=== PATIENT | male | born 1995 | race Caucasian/White ===

== ENCOUNTER → 2016-11-15 | Outpatient (CLI) | payer OTHER ==
--- NOTE | 2016-11-15 15:53 | DIAGNOSTIC IMAGING REPORT ---
RIGHT HAND 2 VIEWS CLINICAL HISTORY: Right hand pain localizing to the fifth metacarpal. FINDINGS: 2 views of the right hand are obtained. No prior studies are available for comparison at the time of dictation. The skeletal structures are well mineralized. No fracture is seen. The joint spaces of the hand are well-maintained. The overlying soft tissues are within normal limits. IMPRESSION: No acute bony abnormality is identified in the right hand. Electronically signed by: Goran Chinchilla M.D. 11/15/2016 3:51 PM Dictated Date/Time: 11/15/2016 3:51 PM
== END | disposition home or self-care (01) ==
LOC: C.RDSM 15:26
PROVIDERS: ATTEND Physician Assistant
DX: M79.641 Pain in right hand (principal)

== ENCOUNTER 2017-03-02 20:19 | Emergency (ER) | payer BC, OTHER ==
[~2017-03-02] VITALS: Ht 182.9 cm; Wt 68.0 kg
[2017-03-02 20:23] VITALS: TEMP 36.4; Ht 182.9 cm; Wt 68.0 kg
--- NOTE | 2017-03-02 21:29 | DIAGNOSTIC IMAGING REPORT ---
(TESTICULAR) SCROTUM-CONT CLINICAL HISTORY: 21 years-old Male presenting with left testicular pain. TECHNIQUE: Real-time grayscale and color and spectral Doppler ultrasound imaging of the scrotum was performed. COMPARISON: None. FINDINGS: Right testis: Normal echogenicity and size, measuring 4.9 x 2.4 x 3.1 cm. Normal color Doppler flow and arterial and venous waveforms in the testicular parenchyma. Epididymal head normal. No hydrocele. Left testis: Normal echogenicity and size, measuring 4.7 x 2.7 x 2.7 cm. Normal color Doppler flow and arterial and venous waveforms in the testicular parenchyma. Epididymal head normal. No hydrocele. Bilaterally symmetric perfusion of the testes. IMPRESSION: No evidence of testicular torsion. Electronically signed by: Cj Gold M.D. 03/02/2017 9:28 PM Dictated Date/Time: 03/02/2017 9:26 PM
[2017-03-02] MEDS ORDERED: IBUPROFEN 600 MG TAB PO STA (22:20)
[2017-03-02 22:26] VITALS: BP 134/92; PULSE 84; O2SAT 98
--- NOTE | 2017-03-02 23:12 | EMERGENCY ROOM VISIT NOTE ---
History Report prepared by Latriciaibirish: Anai Montero Under the Supervision of: Dr. Javier Wallace M.D. First contact with patient: 20:27 Chief Complaint: TESTICULAR PAIN Stated Complaint: TESTICULAR PAIN Nursing Triage Summary: patient states one hour ago he was sitting on the toilet and felt his left testicle " go up in me". patient states he pushed the testicle back out and called EMS . patient states he has pain with walking. History of Present Illness The patient is a 21 year old male who presents to the Emergency Room with complaints of persistent left testicle pain for the past 1 hour. He reports he was sitting on the toilet this evening when he felt his left testicle "go up in me". He has severe pain and it was a 10 out of 10. He was able to push it back out and called EMS. He rates his discomfort as a 4/10 in severity and is improving. Walking worsens his discomfort. He has experienced no fever, abdominal pain, back pain, trauma, dysuria, hematuria or abnormal penile discharge. He has been sexually active. He is with the same partner for some time and she is asymptomatic. Review of Systems See HPI for pertinent positives and negatives. A total of ten systems were reviewed and were otherwise negative. Past Medical & Surgical Medical Problems: (1) No significant past medical history Social History Smoking Status: Never Smoker Alcohol Use: occasionally Drug Use: none Marital Status: single Housing Status: lives with roommate Occupation Status: [employer] student Current/Historical Medications No Active Prescriptions or Reported Meds Allergies Coded Allergies: [place] (Verified Allergy, Intermediate, Hives, 03/02/17) Ethanol (Verified Allergy, Unknown, Unknown, 03/02/17) Guaifenesin (Verified Allergy, Unknown, Unknown, 03/02/17) Physical Exam Vital Signs Date Time Temp Pulse Resp B/P (MAP) Pulse Ox O2 Delivery O2 Flow Rate FiO2 03/02/17 22:26 84 20 134/92 98 03/02/17 21:25 84 20 141/77 98 03/02/17 20:23 36.4 90 20 127/76 98 Room Air Physical Exam GENERAL: Awake, alert, well-appearing, in no distress HENT: Normocephalic, atraumatic. Oropharynx unremarkable. EYES: Normal conjunctiva. Sclera non-icteric. NECK: Supple. No nuchal rigidity. FROM. No JVD. RESPIRATORY: Clear to auscultation. CARDIAC: Regular rate, normal rhythm. Extremities warm and well perfused. Pulses equal. ABDOMEN: Soft, non-distended. No tenderness to palpation. No rebound or guarding. No masses. : Normal male genitalia. No penile discharge. Right testicle is nontender. Left testicle is minimally tender. No epididymal tenderness. Left testicle has slight abnormal lie, freely mobile, very easily rotated. MUSCULOSKELETAL: Chest examination reveals no tenderness. The back is symmetrical on inspection without obvious abnormality. There is no CVA tenderness to palpation. No joint edema. LOWER EXTREMITIES: Calves are equal size bilaterally and non-tender. No edema. No discoloration. NEURO: Normal sensorium. No sensory or motor deficits noted. SKIN: No rash or jaundice noted. Medical Decision & Procedures ER Provider Diagnostic Interpretation: Radiology results as stated below per my review and radiologist interpretation: (TESTICULAR) SCROTUM-CONT CLINICAL HISTORY: 21 years-old Male presenting with left testicular pain. TECHNIQUE: Real-time grayscale and color and spectral Doppler ultrasound imaging of the scrotum was performed. COMPARISON: None. FINDINGS: Right testis: Normal echogenicity and size, measuring 4.9 x 2.4 x 3.1 cm. Normal color Doppler flow and arterial and venous waveforms in the testicular parenchyma. Epididymal head normal. No hydrocele. Left testis: Normal echogenicity and size, measuring 4.7 x 2.7 x 2.7 cm. Normal color Doppler flow and arterial and venous waveforms in the testicular parenchyma. Epididymal head normal. No hydrocele. Bilaterally symmetric perfusion of the testes. IMPRESSION: No evidence of testicular torsion. Electronically signed by: Cj Gold M.D. 03/02/2017 9:28 PM Medications Administered Medications (Trade) Dose Ordered Sig/Kiara Route Start Time Stop Time Status Last Admin Dose Admin Ibuprofen (Motrin Tab) 600 mg NOW STAT PO 03/02/17 22:20 03/02/17 22:21 DC 03/02/17 22:25 600 MG ED Course 2034: The patient was evaluated in room C5. A complete history and physical exam was performed. 2129: I reevaluated the patient. He is feeling about the same but declined any medication for pain or nausea. 2139: I discussed the patients case with Dr. Duvall, [facility]. He recommends the patient follow up in the office if he has any more problems. 2211: I reevaluated the patient. He feels much better. He is able to stand and ambulate without limitation or discomfort. Upon reexamination, he has normal cremasteric function on the left, Vas is palpable and normal, cord is nontender, normal lie. I discussed his results and discharge instructions and he verbalized complete understanding and agreement. 2220: Ibuprofen 600 mg PO. Medical Decision Triage Nursing notes reviewed and agree them. The patient's history was concerning for testicular swelling. Differential diagnosis: Etiologies such as torsion, mass, infection, hernia, hydrocele, epididymitis, trauma, intra-abdominal process, as well as others were entertained. Physical examination: As above. The patient had somewhat abnormal lie of the left testicle. The testicle was rotated 180. Easily. The testicle itself was not significantly tender. The epididymis was nontender. Spermatic cord was unremarkable. No hernia. ER treatment provided: Patient initially declined analgesia On reassessment the patient felt better. Repeat examination was improved. Cremasteric reflex was normal on the left side. Cremasteric functioning appeared normal. There was an easily palpable and nontender Vas deferens. Diagnostic interpretation by me: Imaging studies: Ultrasound as above Consultation: A consultation was placed with the urologist, Dr. Duvall. The case was discussed and diagnostics were reviewed. As the patient has improved and his examination better he recommended torsion precautions and close follow-up in his office. The patient was given his information will call Sunday morning. By the history and physical examination. The patient had an episode of torsion and then detorsed. By the evaluation outlined above emergent etiologies such as continued torsion, mass, infection, hernia, hydrocele, epididymitis, trauma, intra-abdominal process, as well as others were deemed relatively unlikely. The patient was informed about the findings as listed above. All questions were answered and he was pleased with the treatment. Return instructions were outlined and the patient was discharged in stable condition. Outpatient prescription management: none Referral: The patient was referred to Urology for follow-up next week for a recheck of the current condition. Medication Reconcilliation Current Medication List: was personally reviewed by me Blood Pressure Screening Patient's blood pressure: Elevated blood pressure Blood pressure disposition: Elevated BP felt to be situational Consults Time Called: 2134 Consulting Physician: Dr. Duvall, [facility] Returned Call: 2139 I discussed the patients case with Dr. Duvall, [facility]. He recommends the patient follow up in the office if he has any more problems. Impression Primary Impression: Testicular pain Scribe Attestation The scribe's documentation has been prepared under my direction and personally reviewed by me in its entirety. I confirm that the note above accurately reflects all work, treatment, procedures, and medical decision making performed by me. Departure Information Dispostion Home / Self-Care Prescriptions No Active Prescriptions or Reported Meds Referrals [facility] (PCP) Patient Instructions My [facility] Additional Instructions Ibuprofen(Motrin, Advil) may be used for fever or pain. Use 600mg every six hours as needed. Take with food. Avoid using more than 2400mg in a 24 hour period. Do not use 2400mg per day for more than three consecutive days without physician direction. Prolonged inappropriate use can lead to stomach upset or ulcers. (AND/OR) Acetaminophen(Tylenol) may be used for fever or pain. Use 1000mg every six hours as needed. Avoid using more than 4000mg in a 24 hour period. Rest and avoid strenuous activity. Wear supportive underwear. Drink plenty of fluids. Return to the ER for worsening testicular pain, abdominal or back pain, vomiting , fevers, passing out, or as needed. Follow up with [facility] by phone Sunday, [phone], to arrange a visit. Tell the pathology secretary/transcriptionist that you were in the Emergency Room Sunday night and Dr. Duvall was aware.
== END 2017-03-02 22:27 | disposition home or self-care (01) ==
LOC: EDBD 20:19 → C.EDC 20:20
DX: N50.812 Left testicular pain (principal)

== ENCOUNTER 2017-03-03 14:10 | Emergency (ER) | payer BC ==
[~2017-03-03] VITALS: Ht 182.9 cm; Wt 68.2 kg
[2017-03-03 14:13] VITALS: TEMP 36.4; Ht 182.9 cm; Wt 68.2 kg
[2017-03-03] MEDS ORDERED: IBUPROFEN 600 MG TAB PO STA (14:29)
--- NOTE | 2017-03-03 14:38 | EMERGENCY ROOM VISIT NOTE ---
History Report prepared by Yola: Heriberto Watts Under the Supervision of: Dr. Mitchell Hurtado M.D. First contact with patient: 14:18 Chief Complaint: TESTICULAR PAIN Stated Complaint: TESTICULAR PAIN LEFT Nursing Triage Summary: was seen yesterday for testicular torsion, that was worked out. was told to return for pain. states pain started an hour ago and he saw his testicle move upward again. came in to be evaluated History of Present Illness The patient is a 21 year old male who presents to the Emergency Room with complaints of left testicular pain that began a couple of days ago. He rates his current pain a 5/10 in severity. He presented to the ER last night with similar symptoms. However, at that time, they were significantly worse. Prior to last night's visit, he had been having some mild testicular aching for a couple of day. Last night, the patient was sitting on the toilet and noticed that his left testicle "slipped" up into his groin. When he pushed it back out, he began to experience a terrible pain that he rated a 9/10 in severity. He received an US in the hospital and was diagnosed with testicular torsion. He was told to return if his symptoms return. Today, his testicles continued to ache, and after the patient was finished playing video games, he stood up and felt his left testicle beginning to retract into his abdomen again. He came back into the ER so he would not experience torsion again. He currently has left testicle pain, mild groin pain, and intermittent nausea. He denies any fevers, chills, back pain, burning with urination, penile discharge, or penile lesions. He denies any current medications or medical problems. He notes that he normally wears briefs for his underwear. Source of History: patient Onset: a couple of days ago Position: other (Left testicle) Symptom Intensity: 5/10 Quality: ache Timing: constant Associated Symptoms: + nausea, No fevers, No chills, No back pain, No urinary symptoms Note: He is experiencing some groin pain as well. Review of Systems See HPI for pertinent positives & negatives. A total of 10 systems reviewed and were otherwise negative. Past Medical & Surgical Medical Problems: (1) No significant past medical history Old medical records were reviewed. Nurse's notes were reviewed and I agree with. Family History Patient reports no known family medical history. Social History Smoking Status: Never Smoker Smokeless Tobacco Use: No Alcohol Use: occasionally Drug Use: none Marital Status: single Housing Status: lives with roommate Occupation Status: [employer] student Current/Historical Medications No Active Prescriptions or Reported Meds Allergies Coded Allergies: [place] (Verified Allergy, Intermediate, Hives, 03/03/17) Ethanol (Verified Allergy, Unknown, Unknown, 03/03/17) Guaifenesin (Verified Allergy, Unknown, Unknown, 03/03/17) Physical Exam Vital Signs Date Time Temp Pulse Resp B/P (MAP) Pulse Ox O2 Delivery O2 Flow Rate FiO2 03/03/17 17:45 77 18 139/99 98 03/03/17 16:05 72 16 133/81 98 Room Air 03/03/17 14:13 36.4 65 20 152/76 100 Room Air Physical Exam General: Non-ill appearing young male, well developed well nourished in no acute distress, breathing comfortably on room air. Normal speech HEENT: Normal cephalic atraumatic. Pupils are equal round and reactive to light. Extraocular movements are intact. Oropharynx is pink with moist mucous membranes. No swelling of the mouth lips or tongue. Neck: Supple with a midline trachea. No meningeal signs or stiffness, no JVD or bruits. No Stridor. Chest: Clear to auscultation bilaterally. No wheezes or rhonchi. No increased work of breathing. Heart: regular rate and rhythm. Abdomen: Soft nontender, nondistended without rebound guarding or rigidity. Extremities: No cyanosis clubbing or edema. No calf tenderness or assymetry Spine/Back. Non tender to palpation. No CVA tenderness : No evidence of hernia. No penile lesions or discharge. Left testis is not erythematous or edematous. It is slightly asymmetrically higher than the right testis. Skin: Good turgor without rashes. Neurologic exam: Cranial nerves two through 12 are intact. Motor and sensation are intact and symmetrical throughout. Medical Decision & Procedures ER Provider Diagnostic Interpretation: Radiology results as stated below per my review and radiologist interpretation: TESTICULAR ULTRASOUND CLINICAL HISTORY: Scrotal pain COMPARISON STUDY: 03/02/2017 FINDINGS: The right testis measures 48 x 21 x 23 mm. The left testis measures 48 x 19 x 30 mm. No intratesticular masses are visualized. There is no evidence of testicular torsion. The epididymis appears normal bilaterally. IMPRESSION: Normal testicular ultrasound. Electronically signed by: Sohan Downey M.D. 03/03/2017 3:15 PM Dictated Date/Time: 03/03/2017 3:14 PM Laboratory Results Test 03/03/17 14:36 Urine Color YELLOW Urine Appearance TURBID (CLEAR) Urine pH 6.5 (4.5-7.5) Urine Specific [place] 1.028 (1.000-1.030) Urine Protein NEG (NEG) Urine Glucose (UA) NEG (NEG) Urine Ketones NEG (NEG) Urine Occult Blood NEG (NEG) Urine Nitrite NEG (NEG) Urine Bilirubin NEG (NEG) Urine Urobilinogen NEG (NEG) Urine Leukocyte Esterase TRACE (NEG) Urine WBC (Auto) 5-10 /hpf (0-5) Urine RBC (Auto) 0-4 /hpf (0-4) Urine Hyaline Casts (Auto) 1-5 /lpf (0-5) Urine Epithelial Cells (Auto) 10-20 /lpf (0-5) Urine Bacteria (Auto) NEG (NEG) Urine Renal Epithelial Cells /lpf (0-5) Urine Crystals AMORPHOUS SEDIMENT (NONE Laboratory studies as stated above per my review. Medications Administered Medications (Trade) Dose Ordered Sig/Kiara Route Start Time Stop Time Status Last Admin Dose Admin Ibuprofen (Motrin Tab) 600 mg NOW STAT PO 03/03/17 14:29 03/03/17 14:32 DC 03/03/17 14:41 600 MG ED Course 1418: Past medical records reviewed. The patient was evaluated in room C11B, and a complete history and physical examination were performed. 1429: Ordered Motrin Tab 600 mg PO 1521: The patient is feeling better at this time. 1602: I spoke with Dr. Duvall of Urology at this time. We discussed the patient' s case. They will come into the ER and evaluate the patient. 1729: Dr. Duvall said that the patient does not have torsion and he can go home. The patient will follow up with Dr. Duvall in the near future. 1740: Upon reevaluation, the patient is resting. I discussed the results and treatment plan with him. He verbalized agreement of the treatment plan. The patient was discharged home. Medical Decision Differentials include, but are not limited to; testicular torsion, epididymitis , and infection. This patient comes in as described above. He had significant testicular pain the left last night and had a normal ultrasound. He started having a little more pain today but not quite as bad. On exam, there is no redness or swelling. There is some slight asymmetry with the left being higher than the right. I did order urinalysis and culture as well as some ibuprofen. I repeated the ultrasound. The patient does not appear ill or in any significant discomfort. There is no hernia on exam. Ultrasound was unremarkable. His exam does not suggest torsion or acute abnormality. Urinalysis does not suggest infection. As per Dr Diaz's request also added a GC chlamydia urine. Dr. Duvall did come and see the patient and feels he was discharged home. He does not feel he has acute torsion. If the patient has further significant pain he should return to the ER and is still possibly could have intermittent torsion and may ultimately orchidopexy if this returns. Dr. Duvall discussed this with the patient and the patient will be discharged home. Medication Reconcilliation Current Medication List: was personally reviewed by me Blood Pressure Screening Patient's blood pressure: Elevated blood pressure Blood pressure disposition: Elevated BP felt to be situational Consults Time Called: 1600 Consulting Physician: Dr. Duvall - Urology Returned Call: 1602 We discussed the patient's case. They will be coming to evaluate the patient. Additional Consults: Time Called: 1729 Consulted Physician: Dr. Duvall - Urologal Returned Call: 1729 Additional Comments: They said that the patient does not have torsion and that he can go home. The patient will follow up with Dr. Duvall in the near future. Impression Primary Impression: Left testicular pain Scribe Attestation The scribe's documentation has been prepared under my direction and personally reviewed by me in its entirety. I confirm that the note above accurately reflects all work, treatment, procedures, and medical decision making performed by me. Departure Information Dispostion Home / Self-Care Prescriptions No Active Prescriptions or Reported Meds Referrals [facility] (PCP) Bud Duvall M.D. Forms HOME CARE DOCUMENTATION FORM, IMPORTANT VISIT INFORMATION, WORK / SCHOOL INSTRUCTIONS Patient Instructions My [facility] Additional Instructions Rest. Return if: Increasing pain or swelling, worsening symptoms, fever chills , recurrent symptoms, any new problems or concerns Follow up with Dr. Duvall in his office this week
[2017-03-03 14:51] LABS: URINE APPEARANCE TURBID (CLEAR); URINE BILIRUBIN NEG (NEG); URINE COLOR YELLOW; URINE NITRITE NEG (NEG); URINE PH 6.5 (4.5-7.5); URINE SPECIFIC GRAVITY 1.028 (1.000-1.030); UROBILINOGEN NEG (NEG)
[2017-03-03 14:53] LABS: MANUAL MICROSCOPIC REQUIRED? NO; REVIEW REQ? YES
--- NOTE | 2017-03-03 15:16 | DIAGNOSTIC IMAGING REPORT ---
TESTICULAR ULTRASOUND CLINICAL HISTORY: Scrotal pain COMPARISON STUDY: 03/02/2017 FINDINGS: The right testis measures 48 x 21 x 23 mm. The left testis measures 48 x 19 x 30 mm. No intratesticular masses are visualized. There is no evidence of testicular torsion. The epididymis appears normal bilaterally. IMPRESSION: Normal testicular ultrasound. Electronically signed by: Sohan Downey M.D. 03/03/2017 3:15 PM Dictated Date/Time: 03/03/2017 3:14 PM
[2017-03-03 17:45] VITALS: BP 139/99; PULSE 77; O2SAT 98
--- NOTE | 2017-03-03 18:01 | Urology Consultation ---
History General Date of Service: Mar 03, 2017. Primary Care Physician: [facility] History of Present Illness the pt is a 21 y/o male with a history of sudden onset of excruciating pain last not so bad for an hour he called an ambulance . He said he noticed his testicle on the left rise and the pain was so bad he felt light headed and did not feel he could walk . By the time he arrived in the ER his pain was better and a sonogram did not show torsion . He was sent home with instructions to f/u with urology after I discussed with attending last pm to discuss possible elective orchidopexy. He was instructed to return if the severe symptoms recurred . He said he was sore but motrin relieved his pain last night and this morning he had some return of slight soreness and noticed his testicle rise with some discomfort consistent with a cremasteric reflex. He returned and had a repeat nl sonogram and I was asked to evaluate the pt. After discussion it is clear the pt did not have severe pain like the night before but was frightened it could return. We discussed torsion and orchidopexy and he clearly is not torsed now and I do not believe he was torsed today . Yesterday he likely either torsed and detorsed or had a retraction into the external canal. I offered to speak with his mother but he declined . I told him to schedule an appt with our office next week to discuss scheduling an elective bilateral orchidopexy and if he returns a third time I would probably operate or if he was detorsed schedule an accelerated procedure. Of note pt with hx of chlamydia Laboratory Labs were reviewed and are within normal limits unless listed below. Labs are available in the chart and at [facility] Problem List Medical Problems: (1) Left testicular pain Status: Acute (2) Testicular pain Status: Acute Family History Patient reports no known family medical history. Social History Marital status: single Occupation status: [employer] student Allergies Coded Allergies: [place] (Verified Allergy, Intermediate, Hives, 03/03/17) Ethanol (Verified Allergy, Unknown, Unknown, 03/03/17) Guaifenesin (Verified Allergy, Unknown, Unknown, 03/03/17) Medications Home Medications: Home Meds and Scripts Medications Dose Route/Sig Max Daily Dose Days Date Category No Active Prescriptions or Reported Medications Rx Review of Systems Review of Systems Constitutional: No see HPI, No fever, No chills, No frequent headaches, No weight loss, No problem reported Eyes: No see HPI, No blurred vision, No double vision, No eye pain, No loss of night vision, No problem reported Endocrine: No see HPI, No excessive thirst, No too hot, No too cold, No tired/ sluggish, No problem reported Gastrointestinal: No see HPI, No abdominal pain, No indigestion, No nausea, No vomiting, No constipation, No diarrhea, No problem reported Cardiovascular: No see HPI, No heart murmur, No chest pain, No angina, No irregular heartbeat, No palpitations, No swelling ankles/feet, No problem reported Respiratory: No see HPI, No shortness of breath, No wheezing, No coughing up blood, No chronic cough, No problem reported Skin: No see HPI, No rash, No boils, No dry skin, No problem reported Musculoskeletal: No see HPI, No joint pain, No neck pain, No back pain, No arthritis, No problem reported Psychologic / Mental: No see HPI, No nervous, No trouble remembering, No difficulty sleeping, No problem reported Male : No problem reported Additional Comments: left testiclar pain Physical Exam Vital Signs: Vital Signs Past 12 Hours Date Time Temp Pulse Resp B/P (MAP) Pulse Ox O2 Delivery O2 Flow Rate FiO2 03/03/17 17:45 77 18 139/99 98 03/03/17 16:05 72 16 133/81 98 Room Air 03/03/17 14:13 36.4 65 20 152/76 100 Room Air Physical Exam: General Appearance: WD/WN Eyes: bilateral eyes normal inspection, bilateral eyes PERRL, bilateral eyes EOMI ENT: normal ENT inspection, hearing grossly normal, TMs normal, pharynx normal Neck: supple, no adenopathy, thyroid normal, no JVD Respiratory/Chest: chest non-tender, lungs clear, normal breath sounds, no respiratory distress, no accessory muscle use Cardiovascular: regular rate, rhythm, no edema, no gallop, no JVD, no murmur Genitourinary - Male: Urethral Meatus: normal urethral meatus Testes: normal testes Epididymides: normal epididymides Scrotum: normal scrotum (no inguinla tenderness or hernia , could palpate the vasa bilaterally, cord not tender or swollen) Extremities: normal range of motion, non-tender, normal inspection, no pedal edema, no calf tenderness, normal capillary refill Neurologic/Psychiatric: 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
== END 2017-03-03 17:47 | disposition home or self-care (01) ==
LOC: C.EDB 14:11 → C.EDC 17:47
DX: N50.812 Left testicular pain (principal)